=== PATIENT | female | born 1955 | race Caucasian/White ===

== ENCOUNTER 2018-03-19 06:26 | Day surgery (SDC) | payer OTHER ==
--- OUTSIDE RECORDS SUMMARY | 2018-03-19 06:31 | XMS REPORT | Clinical Summary ---
:1955 Author Organization [facility] Address [address] [place] [id number] Care Team Providers Name Role Phone Asked, No Pcp Primary Care Provider Unavailable Allergies Not on File Current Medications No known medications Active Problems Problem Noted Date Primary osteoarthritis of right wrist 05/16/2016 Family History Medical History Relation Name Comments Alcohol abuse Father Hypertension Father Arthritis Mother Relation Name Status Comments Father Mother Social History Tobacco Use Types Packs/Day Years Used Date Current Every Day Smoker Cigarettes 1.5 Alcohol Use Drinks/Week oz/Week Comments Yes 1-2 Standard drinks or equivalent 0.6 - 1.2 Sex Assigned at Date Recorded Not on file Last Filed Vital Signs Not on file Plan of Treatment Health Maintenance Due Date Last Done Comments CERVICAL CANCER SCREENING 1978 BREAST CANCER SCREENING 2007 COLON CANCER SCREENING 2007 SHINGRIX VACCINE (#1) 2007 ZOSTER VACCINE 2017 INFLUENZA VACCINE 05/08/2018 Results Not on fileafter 03/18/2017 Insurance Payer Benefit Plan / Group Subscriber ID Type Phone Address AETNA AETNA PPO OPEN CHOICE xxxxxxxxxx PPO Home: [id number] [facility] [place] [phone] [phone] [id number]
[2018-03-19] MEDS ORDERED: Ringers Lactate 1,000 ML IV ONE (06:43)
[2018-03-19] MEDS ORDERED: LIDOCAINE 2% MPF 5 ML VIAL ONE (08:56)
[2018-03-19] MEDS ORDERED: MIDAZOLAM HCL 2 MG/2 ML INJ ONE (08:56)
[2018-03-19] MEDS ORDERED: PROPOFOL 200 MG/20 ML VIAL IV ONE (08:56)
[2018-03-19] MEDS ORDERED: FENTANYL CITR 100 MCG/2 ML ONE (08:57)
[2018-03-19] MEDS ORDERED: ONDANSETRON HCL 40 MG/20 ML VIAL ONE (08:57)
[2018-03-19] MEDS ORDERED: EPHEDRINE SULF 50 MG/5 ML SYR ONE (09:26)
[2018-03-19] MEDS: MORPHINE 4 MG/ML SYR ONE ×2 (09:53→10:00)
--- NOTE | 2018-04-15 20:07 | OP ---
Date of Procedure: 03/19/2018 Surgeon: Whit Carpenter MD Preoperative Diagnosis: Enlarging fibroid, thickened endometrium. Postoperative Diagnosis: Enlarging fibroid, thickened endometrium. Procedure: Hysteroscopy, dilation and curettage, and dissection of the endometrium with Anesthesia: General. Complications: No complications. Drains: No drains. Estimated Blood Loss: Minimal. Specimens: Endometrial curettings with a resection device. Condition: Stable. Indications: The patient is a 62-year-old with an enlarging fibroids on ultrasound, thickened endome trium, needed resection of the endometrium for adequate sampling and so to rule out any endometrial a typia or cancer, possibly also a biopsy of the myometrium. She was properly consented and brought to the OR. After consent was re-verified in the preop, she was taken back to the OR, placed in a supin e fashion on the operating table. After general with LMA was given, she was placed in dorsal lithoto my position using Saturnino stirrups. Pelvic exam was performed, confirmed enlarged uterus. Speculum wa s placed to expose the cervix, anterior lip was grasped with 2 Allis clamps. Prep x3 with Betadine w as done. Using the hysteroscope that comes with device hysteroscopy was performed. Hyste roscopy was performed through sheath and normal saline was used for distention medium, a 0 degree lens was used for this. Then after checking the inner lining of the uterus, both tubal ostia were visualized. The entire cav ity was visualized. The cavity appeared to be impinged by the fibroid; however, no intracavitary les ions were seen. The endometrium appeared to be even and no irregularity was seen. The resection dev ice was inserted through this. Then using the suction and the cutting, 360 degrees endometrial resec tion, resectoscopic biopsy was taken by scraping of the lining from the fundus all the way to the int ernal os on all sides. After adequate sampling was done, there was excellent hemostasis. The bipola r at the tip of it was used to cauterize one area that was bleeding, but otherwise adequate sample wa s obtained. The patient was hemostatic after the scope was removed. All instruments were removed. Instrument, needle, and sponge counts were done and were correct at the end of the case. The patient tolerated the procedure well. She was recovered from anesthesia and taken to the PACU in stable con dition. RADHA Voice ID: [id number] Report ID: [id number]
--- NOTE | 2018-04-19 16:08 | OP ---
Date of Procedure: 03/19/2018 Surgeon: Whit Carpenter MD Preoperative Diagnosis: Enlarging fibroid, thickened endometrium. Postoperative Diagnosis: Enlarging fibroid, thickened endometrium. Procedure: Hysteroscopy, dilation and curettage, and dissection of the endometrium with Symphion. Anesthesia: General. Complications: No complications. Drains: No drains. Estimated Blood Loss: Minimal. Specimens: Endometrial curettings with a resection device. Condition: Stable. Indications: The patient is a 62-year-old with an enlarging fibroids on ultrasound, thickened endome trium, needed resection of the endometrium for adequate sampling and so to rule out any endometrial a typia or cancer, possibly also a biopsy of the myometrium. She was properly consented and brought to the OR. After consent was re-verified in the preop, she was taken back to the OR, placed in a supin e fashion on the operating table. After general with LMA was given, she was placed in dorsal lithoto my position using Saturnino stirrups. Pelvic exam was performed, confirmed enlarged uterus. Speculum wa s placed to expose the cervix, anterior lip was grasped with 2 Allis clamps. Prep x3 with Betadine w as done. Using the hysteroscope that comes with Symphion device, hysteroscopy was performed. Hyster oscopy was performed through the Symphion sheath and normal saline was used for distention medium, a 0 degree lens was used for this. Then after checking the inner lining of the uterus, both tubal ostia were visualized. The entire cav ity was visualized. The cavity appeared to be impinged by the fibroid; however, no intracavitary les ions were seen. The endometrium appeared to be even and no irregularity was seen. The resection dev ice was inserted through this. Then using the suction and the cutting, 360 degrees endometrial resec tion, resectoscopic biopsy was taken by scraping of the lining from the fundus all the way to the int ernal os on all sides. After adequate sampling was done, there was excellent hemostasis. The bipola r at the tip of it was used to cauterize one area that was bleeding, but otherwise adequate sample wa s obtained. The patient was hemostatic after the scope was removed. All instruments were removed. Instrument, needle, and sponge counts were done and were correct at the end of the case. The patient tolerated the procedure well. She was recovered from anesthesia and taken to the PACU in stable con dition. RADHA Voice ID: [id number] Report ID: [id number]
== END 2018-03-19 10:47 | disposition home or self-care (01) ==
LOC: OR 06:26
PROVIDERS: ATTEND Obstetrics & Gynecology
PROC: 0UJD8ZZ Inspection of Uterus and Cervix, Via Natural or Artificial Opening Endoscopic (ICD-10-PCS; 2018-03-19)
PROC: 0UDB7ZX Extraction of Endometrium, Via Natural or Artificial Opening, Diagnostic (ICD-10-PCS; principal; 2018-03-19 07:30)
DX: D25.9 Leiomyoma of uterus, unspecified (principal); R93.8 Abnormal findings on diagnostic imaging of other specified body structures; I10 Essential (primary) hypertension; E78.2 Mixed hyperlipidemia; F17.210 Nicotine dependence, cigarettes, uncomplicated; Z80.3 Family history of malignant neoplasm of breast; Z82.62 Family history of osteoporosis
CPT/HCPCS: 88305; J2250; J2405; J3010

== ENCOUNTER 2018-09-12 06:55 | Day surgery (SDC) | payer OTHER ==
[2018-09-09 10:57] LABS: Urine Appearance CLEAR; Urine Bilirubin NEGATIVE (NEG); Urine Blood NEGATIVE (NEG); Urine Color YELLOW; Urine Glucose NEGATIVE (NEG); Urine Protein NEGATIVE (NEG); Urine Specific Gravity 1.025 (1.005-1.030); Urine pH 6.5 (5.0-7.0)
[2018-09-09 11:08] LABS: Urine Microscopic Reflex NO UMIC
[2018-09-09 11:11] LABS: Absolute Lymphocytes (CBC) 2.1 K/uL (0.7-4.9); Absolute Monocytes 0.4 K/uL (0.1-1.3); Absolute Neutrophil 3.9 K/uL (1.8-8.0); Basophils % 0.7 % (0-1.3); Eosinophils % 0.5 % (0-4.4); Lymphocytes % 32.2 % (15.3-44.8); MCV 93.9 fL (80-100); MPV 8.3 fL (7.6-11.3); Monocytes % 6.8 % (3.3-12.3)
--- OUTSIDE RECORDS SUMMARY | 2018-09-12 07:02 | XMS REPORT | Clinical Summary ---
:1955 Author Organization [facility] Address [address] [place] [id number] Care Team Providers Name Role Phone Asked, No Pcp Primary Care Provider Unavailable Allergies Not on File Medications No known medications Active Problems Problem [...] Assigned at Date Recorded Not on file Job Start Date Occupation Industry Not on file Not on file Not on file Travel History Travel Start Travel End No recent travel history available. Last Filed Vital Signs Not on file Plan of Treatment Health Maintenance Due Date Last Done Comments CERVICAL CANCER SCREENING 1978 BREAST CANCER SCREENING 2007 COLON CANCER SCREENING 2007 SHINGRIX VACCINE (1 of 2) 2007 ZOSTER VACCINE 2017 INFLUENZA VACCINE 05/08/2018 Results Not on fileafter 09/11/2017 Insurance Payer Benefit Plan / Group Subscriber ID Type Phone Address AETNA AETNA PPO OPEN CHOICE xxxxxxxxxx PPO Advance Directives Patient has advance care planning documents on file. For more information, please contact:[address] [address]
[2018-09-12] MEDS ORDERED: PROPOFOL 200 MG/20 ML VIAL IV ONE (07:11)
[2018-09-12] MEDS ORDERED: ROCURONIUM 50 MG/5 ML VIAL IV ONE ×2 (07:12→08:58)
[2018-09-12] MEDS ORDERED: GLYCOPYRROLATE 0.2 MG/ML SYR ONE ×2 (07:12→09:13)
[2018-09-12] MEDS ORDERED: DEXAMETHASONE 10 MG/ML VIAL ONE (07:13)
[2018-09-12] MEDS ORDERED: FENTANYL CITR 250 MCG/5 ML ONE ×2 (07:14→09:24)
[2018-09-12] MEDS ORDERED: ONDANSETRON HCL 40 MG/20 ML VIAL ONE ×2 (07:14→11:25)
[2018-09-12] MEDS ORDERED: MIDAZOLAM HCL 2 MG/2 ML INJ ONE (07:14)
[2018-09-12] MEDS ORDERED: LIDOCAINE 2% MPF 5 ML VIAL ONE (07:14)
[2018-09-12] MEDS ORDERED: NEOSTIGMINE 1 MG/ML -5 ML SYRINGE ONE (07:14)
[2018-09-12] MEDS ORDERED: NA CHLORIDE 0.9% 1,000 ML ONE (07:21)
[2018-09-12] MEDS ORDERED: Ringers Lactate 1,000 ML IV ONE (07:48)
[2018-09-12] MEDS ORDERED: CEFAZOLIN 1GM (PREMIX IV) 1 GM/50 ML BAG ONE (07:49)
[2018-09-12] MEDS ORDERED: SCOPOLAMINE HYDROBROMIDE PATCH TD ONE (07:56)
[2018-09-12] MEDS ORDERED: DIAZEPAM 5 MG TABLET ONE (08:06)
[2018-09-12] MEDS ORDERED: EPHEDRINE SULF 50 MG/10 ML SYR ONE (08:51)
[2018-09-12] MEDS ORDERED: HYDRALAZINE HCL 20 MG/ML VIAL ONE (09:24)
[2018-09-12] MEDS: NA CHLORIDE 0.9% 1,000 ML ONE ×2 (10:14→10:57)
[2018-09-12] MEDS ORDERED: KETOROLAC 30 MG/ML INJ ONE (10:56)
[2018-09-12] MEDS: MEPERIDINE HCL 50 MG/ML AMP ONE ×4 (11:40→12:00)
[2018-09-12] MEDS ORDERED: HYDROCODONE/APAP 5/325 MG TAB ONE (13:01)
--- NOTE | 2018-09-14 02:39 | OP ---
Date of Procedure: 09/12/2018 Surgeon: Whit Carpenter MD Molecular Spectroscopist: Beronica Newberry. Preoperative Diagnoses: Leiomyoma, right lower quadrant pain, and bloating. Postoperative Diagnoses: Leiomyoma, right lower quadrant pain, and bloating, adhesions of the bladde r and cecal adhesions. Procedures Performed: 1.Total laparoscopic hysterectomy, bilateral salpingo-oophorectomy, pelvic washings. 2.Removal of the specimen vaginally without a bag or morcellation and cystoscopy. Estimated Blood Loss: Minimal. Specimens: Uterus, bilateral tubes and ovaries, pelvic washings. Complications: No complications. Drains: No drains. Condition: Stable. Findings: There were cecal adhesions in the right lateral aspect of the umbilicus. Upper abdominal surfaces, peritoneal surfaces and omentum all completely unremarkable. The appendix appeared to be u nremarkable as well. The uterus had a small tumor on the anterior wall close to the fundus that was about 2.5 cm and a large posterior mass that appeared to be vascular and about 7-8 cm or maybe 8-9 cm . There were small fibroids along the bilateral round ligaments and there were moderate amount of ad hesions at the level of her scar. Both ovaries were normal. Cystoscopy negative. Indications: The patient is a 63-year-old who had pelvic mass that was evaluated with ultrasound devonte ples and no major change in the size over time. However, on sampling, there were endometrial glands and stroma, smooth muscle suggestive of adenomyosis. No evidence of any leiomyosarcoma or endometria l atypia or malignancy. So, discussed about the patient's symptoms as she was having right lower alex drant pain. She was concerned about the uterine mass. We discussed together about the options of ob servation with surveillance versus hysterectomy and bilateral salpingo-oophorectomy, this possibly be ing a leiomyoma, leiomyosarcoma risk being very, very low, still present. However, in the absence of postmenopausal bleeding, it is not a big concern, however, patient was concerned enough that due to the presence of the pain and the presence of the mass, she was uncomfortable to continue observation with ultrasound surveillance, so consented her for total laparoscopic hysterectomy, bilateral salping o-oophorectomy, pelvic washings, and brought to the OR. Description Of Procedure: After 1 g of Ancef was given, she was taken to the OR. SCDs were placed, placed in supine fashion on the operating table. After general anesthesia was given, she was placed in dorsal lithotomy position using Saturnino stirrups. Pelvic exam was performed. Uterus was found to b e enlarged with a posterior extension of the mass as was indicated on the exam. Abdomen, vulva, vagina, and perineum were prepped and draped in a sterile fashion. Mcgowan was placed to drain the bladder and attached to cysto tubing for retrograde filling to an LR bag, emptied 300. A large VCare was inserted into the uterus and fixed in place. On the abdomen, an infraumbilical incision was made with a scalpel. Fascia was incised, tagged. Per itoneum entered bluntly, S-retractors placed, Cristopher introduced. Site of entry was checked and unrem arkable. Upper abdominal surfaces, omentum, peritoneal surfaces were all unremarkable. Appendix alexand[place] eared to be normal. On the right lateral aspect of the umbilicus was a large cecal adhesion to the a nterior abdominal wall. The right lower quadrant, left lower quadrant, and suprapubic areas were all free. 5 mm left lower and right lower quadrant incisions and 10 mm suprapubic incisions were made a nd trocars placed under direct vision without any problems. After patient was placed in steep Trendelenburg position, the bowel was packed up top, uterus was vis ualized. Both ureters were visualized from the pelvic brim to the ureteric tunnel and they were with out any anatomic distortion. A 5 mm LigaSure was taken. Before this, pelvic washings were obtained, making sure that the myoma an teriorly and posteriorly were both evinced and specimen collected from adnexa as well in the abdomina l cavity and the upper aspect as well. I went on to start the hysterectomy with using the 5 mm LigaSure, taking down the peritoneum below th e level of the round ligament, opening the flap up, getting to the bladder flap. Here, the bladder a dhesions were well visualized and dissection was performed just underneath the peritoneum and bladder flap was raised all the way to the right round ligament. The bladder was dissected at the level of the cup from the anterior vaginal wall, the bladder with dissection with the LigaSure and inferiorly dissecting it, then opening up the vesicovaginal space with a monopolar hook blade. The b ladder was dissected inferiorly with the peanut as well as LigaSure. Once below the level of the VCa re cup, I went back to the round ligaments. The round ligaments, mesosalpinx, utero-ovarian ligament s were all taken down and the tube and the posterior broad ligament was dissected to the left uterosa cral. The broad ligament was taken down to skeletonize the vessels. On the opposite side, similar d issection was performed taking down the round ligament, then the mesosalpinx tube, utero-ovarian liga ment, and posterior broad ligament all the way to the right uterosacral ligament. The broad ligament was taken down. The vessels were skeletonized. Then, the dissection on this side was slightly more difficult due to the presence of the fibroid. However, once I came down below the level of the fibr oid, there were no problems, did not have to cut the fiber or touch it during the entire dissection a nd once the vessels were exposed, a medial incision was made with the monopolar hook blade, then the vessels were taken down with the help of the bipolar basket tip followed by the LigaSure. Then, the cardinal ligaments were also taken down on the right side, then going on to left side taking down the vessels and descending vaginal branch and the cardinal ligaments. Once all the supports were taken down, a circumferential colpotomy was performed with a monopolar hook blade and the specimen was sepa rated. Then, I went down inferiorly and with the help of the Allis clamps, the cervix was grasped. The uterus was curetted out through the vagina. Then, the fibroid was manipulated so that it was twi sted and turned, it allowed the passage through the colpotomy of the fibroid. There was some distent ion of the vaginal canal for it to be fit, but once I was able to slip it out, the entire specimen ca me out. There was slight separation of the myoma from the uterus with just traction applied on the s pecimen to pull it out, but did not have to grasp it other than with a single-tooth tenaculum after I visualized it at the level of the vagina and it was removed gently without getting a spill from the gas in the abdominal cavity through the vaginal canal. Vaginal occluder bulb was placed. Thorough irrigation and suction were performed in the abdominal ca vity. Then, tubes and ovaries were taken down, taken down infundibulopelvic ligament, broad ligament , and the mesosalpinx, completely taking out the tube on both sides, first on the left, then on the r ight. I was able to make sure that all the tumors were removed from the round ligament as well. The n, at the level of the bladder flap, the irrigation and suction were performed. All the specimens we re placed in an Endo Catch bag placed through the vagina and retrieved without any problems. Then, w ent on to close the vaginal cuff with the help of 0 PDS 2 angle stitches and 2 [id number] from t he top and then at center, simple stitch. Cystoscopy was performed to make sure there was no bladder injury before the closure was done. First , the trocars were all removed after suction and irrigation were done in the peritoneal cavity. Uret ers had no evidence of electrical, mechanical, or thermal injury. The gas was desufflated and trocar s removed. Fascia was closed at the umbilicus with a [id number] and then simple 0 Vicryl stitch at the suprapubic fascial incision. All skin incisions were closed with the help of 4-0 Monocryl in terrupted sutures. Once cystoscopy was performed, there was no evidence of any trauma to the bladder . No tumors in the bladder. The entire bladder was examined carefully due to the history of smoking for this patient and lower urinary tract symptoms and urgency. Ureters were patent as well. The bl adder was drained and scope removed. On examining the vaginal cuff here with the help of scope doing a vaginoscopy, there was an opening in the center of the cuff that allowed peritoneal fluid to leak out. At this point, I thought that this would be better to be repaired, this was because of the spac e between the 2 [id number] where I put a simple stitch, so posterior colpotomy was more exposed and not completely closed. So, a 0 Vicryl suture was taken on a CT-1 needle and carefully the educational aide ior and anterior colpotomy sutures were taken through them. Two [id number] were placed and comp lete closure was obtained. There was excellent hemostasis. No concern for any bowel injury. All th e instruments were removed. Instrument, needle, and sponge counts were done and were correct at the end of the case. The patient tolerated the procedure well. She was extubated in the OR and taken to PACU in stable condition. She will follow up with me in 1 week. RADHA Voice ID: [id number] Report ID: [id number]
== END 2018-09-12 14:40 | disposition home or self-care (01) ==
LOC: PRE 06:55
PROVIDERS: ATTEND Obstetrics & Gynecology
PROC: 0UT2FZZ Resection of Bilateral Ovaries, Via Natural or Artificial Opening With Percutaneous Endoscopic Assistance (ICD-10-PCS; 2018-09-12)
PROC: 0UT7FZZ Resection of Bilateral Fallopian Tubes, Via Natural or Artificial Opening With Percutaneous Endoscopic Assistance (ICD-10-PCS; 2018-09-12)
PROC: 0UTC4ZZ Resection of Cervix, Percutaneous Endoscopic Approach (ICD-10-PCS; 2018-09-12)
PROC: 0UT9FZZ Resection of Uterus, Via Natural or Artificial Opening With Percutaneous Endoscopic Assistance (ICD-10-PCS; principal; 2018-09-12 08:30)
DX: D25.9 Leiomyoma of uterus, unspecified (principal); N85.8 Other specified noninflammatory disorders of uterus; N83.202 Unspecified ovarian cyst, left side; N83.201 Unspecified ovarian cyst, right side; N73.9 Female pelvic inflammatory disease, unspecified; K66.0 Peritoneal adhesions (postprocedural) (postinfection); I10 Essential (primary) hypertension; E78.5 Hyperlipidemia, unspecified; E55.9 Vitamin D deficiency, unspecified; M19.90 Unspecified osteoarthritis, unspecified site; F32.9 Major depressive disorder, single episode, unspecified; F17.210 Nicotine dependence, cigarettes, uncomplicated; Z79.899 Other long term (current) drug therapy
CPT/HCPCS: 36415; 81003; 85025; 86850; 86900; 86901; 88108; 88305; 88307; J0360; J0690; J1100; J2175; J2250; J2405; J2704; J2710; J3010; J7030